=== PATIENT | male | born 1975 | race Caucasian/White ===

== ENCOUNTER 2016-12-13 19:56 | Emergency (ER) | payer BC | END 2016-12-13 22:25 | disposition home or self-care (01) | LOC: ER 19:56 | DX: R10.31 Right lower quadrant pain (principal); R19.7 Diarrhea, unspecified; M54.5 Low back pain; R73.9 Hyperglycemia, unspecified; I10 Essential (primary) hypertension; F17.220 Nicotine dependence, chewing tobacco, uncomplicated; Z87.442 Personal history of urinary calculi; Z79.899 Other long term (current) drug therapy | CPT/HCPCS: 36415; 96374; J1885 ==